=== PATIENT | female | born 1975 | race Caucasian/White ===

== ENCOUNTER → 2017-03-27 | Outpatient (CLI) | payer MEDICARE ==
[~2017-03-27] MED LIST: FLORASTOR250 MG PO; IBUPROFEN200 M1 PO; IRON325 M1 PO; LEVAQUIN500 MG PO
== END | disposition home or self-care (01) ==
LOC: RAD 11:22 → EDSTATUS 13:00 → RAD 13:00
PROC: 0T9 Urinary System, Drainage (ICD-10-PCS; principal; 2017-03-27)
DX: R39.0 Extravasation of urine (principal)
CPT/HCPCS: 49406; 74177; 87070; 87075; 87106; 87205; C1769; J3010